=== PATIENT | male | born 1950 | race Caucasian/White ===

== ENCOUNTER → 2024-12-04 14:21 | Outpatient (REF) | payer MEDICARE, OTHER, SELFPAY | LOC: RAD 14:21 | PROVIDERS: ATTENDING PHYSICIAN Nurse Practitioner Family; FAMILY PHYSICIAN Family Medicine | DX: J18.9 Pneumonia, unspecified organism (principal) | CPT/HCPCS: 71046 ==

== ENCOUNTER → 2025-08-12 11:35 | Outpatient (REF) | payer MEDICARE, OTHER, SELFPAY ==
[2025-08-12 12:13] LABS: Hematocrit 42.9 % (39.0-52.0); Hemoglobin 13.7 g/dL (13.0-18.0); Mean Corp Hgb Conc. 31.9 g/dL (33.0-37.0); Mean Corpuscular Volume 85.1 fL (80.0-94.0); Nucleated Red Blood Cells % 0 % (-); Platelet Count 262 10^3/uL (130-400); Red Cell Dist. Width 14.2 % (11.5-14.5)
[2025-08-12 12:37] LABS: ALT (SGPT) 25 U/L (0-50); AST (SGOT) 24 U/L (17-59); Albumin 4.7 g/dl (3.5-5.0); Alkaline Phosphatase 131 U/L (38-126); Blood Urea Nitrogen 16 mg/dl (9-20); Calcium 9.8 mg/dl (8.4-10.2); Carbon Dioxide 31 mmol/L (22-30); Chloride 101 mmol/L (98-107); Glucose 127 mg/dl (70-99); HDL Cholesterol 64 mg/dl; LDL Cholesterol, Calculated 148 mg/dl; Potassium 4.8 mmol/L (3.5-5.1); Sodium 138 mmol/L (135-145); Total Protein 7.9 g/dl (6.3-8.2); Very Low Density Lipoprotein 16 mg/dl (0-30); eGFR > 60.00
[2025-08-12 14:29] LABS: Glycohemoglobin (HgbA1c) 7.0 % (4.0-5.9)
== END ==
LOC: REG 11:35
PROVIDERS: ATTENDING PHYSICIAN Physician Assistant; FAMILY PHYSICIAN Family Medicine
DX: E11.69 Type 2 diabetes mellitus with other specified complication (principal); R52 Pain, unspecified; K11.20 Sialoadenitis, unspecified; R13.12 Dysphagia, oropharyngeal phase
CPT/HCPCS: 36415; 80053; 80061; 83036; 85025

== ENCOUNTER → 2025-08-13 14:51 | Outpatient (REF) | payer MEDICARE, OTHER, SELFPAY | LOC: RAD 14:51 | PROVIDERS: ATTENDING PHYSICIAN Physician Assistant | DX: R13.14 Dysphagia, pharyngoesophageal phase (principal); K11.8 Other diseases of salivary glands | CPT/HCPCS: 70491; Q9967 ==

== ENCOUNTER → 2025-08-25 14:56 | Outpatient (REF) | payer MEDICARE, OTHER, SELFPAY | LOC: HWRAD 14:56 | PROVIDERS: ATTENDING PHYSICIAN Physician Assistant | DX: R52 Pain, unspecified (principal); R13.12 Dysphagia, oropharyngeal phase; K11.20 Sialoadenitis, unspecified | CPT/HCPCS: 76536 ==

== ENCOUNTER → 2025-08-26 11:51 | Outpatient (REF) | payer MEDICARE, OTHER, SELFPAY ==
[2025-08-28 16:28] LABS: Lyme Antibody Screen, EIA Negative (Negative)
== END ==
LOC: REG 11:51
PROVIDERS: ATTENDING PHYSICIAN Physician Assistant
DX: M25.50 Pain in unspecified joint (principal); W57.XXXD Bitten or stung by nonvenomous insect and other nonvenomous arthropods, subsequent encounter
CPT/HCPCS: 36415; 86618